=== PATIENT | female | born 1955 | race African-American/Black ===

== ENCOUNTER 2018-09-06 19:49 | Emergency (ER) | payer BC, MEDICAID, MEDICARE ==
[~2018-09-06] VITALS: Ht 160 cm; Wt 76.7 kg
[~2018-09-06 19:49] MED LIST: ALLO100T; ATENOLOL; CALC0.253; CINA60; CYCL5TAB; ESTR1TAB66; OMEG1CAP17; OMEP20CA10; RENA VITE; RENVELA; STOOL SOFTNER
[2018-09-06 20:47] VITALS: BP 115/68
[2018-09-06] MEDS ORDERED: ACETAMINOPHEN 325MG TABLET PO ONE (23:00)
== END 2018-09-07 02:17 | disposition home or self-care (01) ==
LOC: ER 19:49
DX: M79.662 Pain in left lower leg (principal)
CPT/HCPCS: 93971; 99284

== ENCOUNTER 2021-03-10 18:58 | Emergency (ER) | payer MEDICARE, MEDICAID ==
[~2021-03-10] VITALS: Ht 160 cm; Wt 58.8 kg
[~2021-03-10 18:58] MED LIST changes: -OMEP20CA10; +OMEP20CA14
[2021-03-10] MEDS ORDERED: MORPHINE SULFATE 4 MG/ML CPJ (NOT FOR IM USE) IV ONE (22:00)
[2021-03-10 22:13] LABS: BASOPHILS % 0.3 % (0.0-2.0); EOSINOPHILS % 0.1 % (0.0-5.0); HEMATOCRIT. 28.8 % (36.0-48.0); HEMOGLOBIN. 10.1 g/dL (12.0-16.0); LYMPHOCYTES % 9.4 % (20.0-50.0); MEAN CORPUSCULAR HEMOGLOBIN 33.8 pg (28.0-32.0); MEAN CORPUSCULAR VOLUME 96.9 fL (81.0-99.0); MEAN PLATELET VOLUME 7.7 fl (7.4-10.4); MONOCYTES % 6.6 % (2.0-8.0); NEUTROPHILS % 83.6 % (40.0-76.0); PLATELET 233 x1000/uL (130-400); RED BLOOD CELL COUNT 2.98 mill/uL (4.2-5.4); RED CELL DISTRIBUTION WIDTH 15.2 % (11.6-14.6)
[2021-03-10] MEDS: TRANEXAMIC ACID 1,000 MG/10 ML IV ONE ×2 (22:17→22:32)
[2021-03-10 22:21] LABS: CHLORIDE 91 mEq/L (98-107)
[2021-03-10 22:25] LABS: ETHANOL BLOOD < 10 mg/dL
[2021-03-10 22:26] LABS: PROTHROMBIN TIME 10.7 sec (9.6-11.0)
[2021-03-10] MEDS ORDERED: MORPHINE SULFATE 2 MG/ML CPJ (NOT FOR IM USE) IV SCH (22:30)
[2021-03-10] MEDS ORDERED: CLINDAMYCIN 600 MG in DEXTROSE 5% WATER 50 ML IV ONE (23:30)
[2021-03-10] MEDS ORDERED: AZTREONAM 1 G in DEXTROSE 5% WATER 50 ML IV SCH (23:30)
[2021-03-11] MEDS ORDERED: SODIUM CHLORIDE 0.9% 500 ML IV ONE
[2021-03-11] MEDS ORDERED: ACETAMINOPHEN 650MG/20.3ML UDC PO ONE (01:15)
[2021-03-11 03:30] VITALS: BP 109/41
== END 2021-03-11 03:30 | disposition left against medical advice (07) ==
LOC: ER 18:58 → CANBEDREQ 03-11 04:37
DX: A41.9 Sepsis, unspecified organism (principal); R65.20 Severe sepsis without septic shock; I12.0 Hypertensive chronic kidney disease with stage 5 chronic kidney disease or end stage renal disease; N18.6 End stage renal disease; E78.00 Pure hypercholesterolemia, unspecified; Z20.822 Contact with and (suspected) exposure to COVID-19; Z88.8 Allergy status to other drugs, medicaments and biological substances; Z87.898 Personal history of other specified conditions; Z88.0 Allergy status to penicillin; Z88.6 Allergy status to analgesic agent; Z88.9 Allergy status to unspecified drugs, medicaments and biological substances; Z88.2 Allergy status to sulfonamides; Z88.3 Allergy status to other anti-infective agents; Z88.5 Allergy status to narcotic agent; Z98.51 Tubal ligation status; Z86.39 Personal history of other endocrine, nutritional and metabolic disease; Z79.899 Other long term (current) drug therapy
CPT/HCPCS: 36415; 70486; 71045; 80053; 80320; 83605; 84145; 84484; 85025; 85610; 86140; 87040; 87426; 93005; 94640; 96365; 96368; 96375; 99291; J2270; J3490; J7060; G0480

== ENCOUNTER 2022-05-15 16:48 | Inpatient (IN) | payer MEDICARE, MEDICAID ==
[~2022-05-15] VITALS: Ht 160 cm; Wt 66.7 kg
[2022-05-15] MEDS ORDERED: KETOROLAC 30MG/ML VIAL IV STA (18:54)
[2022-05-15] MEDS ORDERED: SODIUM CHLORIDE 0.9% 1,000 ML IV ONE (19:00)
[2022-05-15 21:03] LABS: BASOPHILS % 0.4 % (0.0-2.0); EOSINOPHILS % 0.4 % (0.0-5.0); HEMOGLOBIN. 10.2 g/dL (12.0-16.0); LYMPHOCYTES % 18.5 % (20.0-50.0); MEAN CORPUSCULAR HEMOGLOBIN 32.2 pg (28.0-32.0); MEAN PLATELET VOLUME 7.3 fl (7.4-10.4); MONOCYTES % 6.7 % (2.0-8.0); PLATELET 316 x1000/uL (130-400); RED BLOOD CELL COUNT 3.16 mill/uL (4.2-5.4); RED CELL DISTRIBUTION WIDTH 15.1 % (11.6-14.6)
[2022-05-15] MEDS ORDERED: KETOROLAC 30MG/ML VIAL IV SCH (21:15)
[2022-05-15 21:31] LABS: CHLORIDE 84 mEq/L (98-107)
[2022-05-15] MEDS ORDERED: MAGNESIUM OXIDE 400MG TABLET PO SCH (22:00)
[2022-05-15] MEDS ORDERED: DOCUSATE SODIUM 100MG CAPSULE PO PRN (22:15)
[2022-05-15] MEDS ORDERED: GUAIFENESIN 200MG/10ML SUGAR FREE UDC PO PRN (22:15)
[2022-05-15] MEDS ORDERED: NITROGLYCERIN 0.4MG TABLET SL SL PRN (22:15)
[2022-05-15] MEDS ORDERED: IPRATROPIUM/ALBUTEROL 0.5-3(2.5)MG/3ML NEB NEB PRN (22:15)
[2022-05-15] MEDS ORDERED: CLONIDINE 0.1MG TABLET PO PRN (22:15)
[2022-05-16] VITALS (7 sets, daily range): BP systolic 126–152; BP diastolic 66–78
[2022-05-16] MEDS ORDERED: MAGNESIUM 2 G PREMIX 50 ML IV NR (03:30)
[2022-05-16] MEDS ORDERED: POTASSIUM CHLORIDE 20MEQ TABLET SR PO NR (03:30)
[2022-05-16] MEDS: FAMOTIDINE 20MG TABLET PO SCH (10:04)
[2022-05-16] MEDS: MAGNESIUM/ALUMINUM HYDROXIDE/SIMETHICONE 30ML UDC PO PRN ×2 (10:04→10:05)
[2022-05-16] MEDS: ASPIRIN 325MG EC TABLET PO SCH (10:04)
[2022-05-16] MEDS: ENOXAPARIN 30MG/0.3ML SYR SUBCUT SCH (10:05)
[2022-05-16 11:28] LABS: BASOPHILS % 0.6 % (0.0-2.0); EOSINOPHILS % 1.7 % (0.0-5.0); HEMATOCRIT. 28.3 % (36.0-48.0); HEMOGLOBIN. 9.6 g/dL (12.0-16.0); LYMPHOCYTES % 20.3 % (20.0-50.0); MEAN CORPUSCULAR HEMOGLOBIN 31.8 pg (28.0-32.0); MEAN CORPUSCULAR VOLUME 94.1 fL (81.0-99.0); NEUTROPHILS % 70.4 % (40.0-76.0); PLATELET 294 x1000/uL (130-400); RED BLOOD CELL COUNT 3.01 mill/uL (4.2-5.4)
[2022-05-16 11:39] LABS: CHLORIDE 84 mEq/L (98-107)
[2022-05-16 11:47] LABS: CREATINE KINASE MB FRACTION 2.6 ng/mL (0.5-3.6); PHOSPHORUS 6.9 mg/dL (2.5-4.9)
[2022-05-16] MEDS: ACETAMINOPHEN 325MG TABLET PO PRN (15:07)
[2022-05-16 17:26] LABS: CREATINE KINASE MB FRACTION 2.6 ng/mL (0.5-3.6)
[2022-05-16 18:07] LABS: T4 FREE 1.15 ng/dL (0.76-1.46)
[2022-05-16 18:40] LABS: VITAMIN B12 SERUM >2000 pg/mL pg/mL (211-911)
[2022-05-16 21:11] LABS: FOLIC ACID (FOLATE) SERUM > 20.00 ng/mL (>5.38)
[2022-05-16] MEDS: ZOLPIDEM TARTRATE 5MG TABLET PO PRN (21:50)
[2022-05-17] VITALS (11 sets, daily range): BP systolic 138–159; BP diastolic 75–91
[2022-05-17] MEDS: ACETAMINOPHEN 325MG TABLET PO PRN ×2 (04:25→20:28)
[2022-05-17] MEDS: ASPIRIN 325MG EC TABLET PO SCH (11:37)
[2022-05-17] MEDS: FAMOTIDINE 20MG TABLET PO SCH (11:37)
[2022-05-17] MEDS: ENOXAPARIN 30MG/0.3ML SYR SUBCUT SCH (11:38)
[2022-05-17] MEDS ORDERED: VISCOUS LIDOCAINE 2% 15 ML UDC MM PRN (11:45)
[2022-05-17] MEDS ORDERED: KETOROLAC 15MG/ML VIAL IV NR (12:20)
[2022-05-17 12:51] LABS: BASOPHILS % 0.4 % (0.0-2.0); EOSINOPHILS % 1.7 % (0.0-5.0); HEMATOCRIT. 26.8 % (36.0-48.0); HEMOGLOBIN. 9.2 g/dL (12.0-16.0); LYMPHOCYTES % 21.7 % (20.0-50.0); MEAN CORPUSCULAR HEMOGLOBIN 32.3 pg (28.0-32.0); MEAN CORPUSCULAR VOLUME 94.2 fL (81.0-99.0); MEAN PLATELET VOLUME 7.2 fl (7.4-10.4); NEUTROPHILS % 64.2 % (40.0-76.0); PLATELET 260 x1000/uL (130-400); RED BLOOD CELL COUNT 2.84 mill/uL (4.2-5.4); RED CELL DISTRIBUTION WIDTH 15.1 % (11.6-14.6)
[2022-05-17 14:56] LABS: CHLORIDE 86 mEq/L (98-107)
[2022-05-17 15:21] LABS: PHOSPHORUS 6.2 mg/dL (2.5-4.9)
[2022-05-17] MEDS ORDERED: MEROPENEM 500MG in NORMAL SALINE 50ML IV SCH (21:00)
[2022-05-17] MEDS: ZOLPIDEM TARTRATE 5MG TABLET PO PRN (21:25)
[2022-05-17] MEDS ORDERED: PIPERACILLIN/TAZOBACTAM 3.375 G in DEXTROSE 5% WATER 50 ML IV SCH (22:00)
[2022-05-18] VITALS (9 sets, daily range): BP systolic 107–153; BP diastolic 66–83
[2022-05-18] MEDS: ACETAMINOPHEN 325MG TABLET PO PRN ×2 (04:38→19:35)
[2022-05-18 07:22] LABS: HEMATOCRIT. 26.6 % (36.0-48.0); HEMOGLOBIN. 9.1 g/dL (12.0-16.0); MEAN CORPUSCULAR HEMOGLOBIN 32.1 pg (28.0-32.0); MEAN CORPUSCULAR VOLUME 94.3 fL (81.0-99.0); MEAN PLATELET VOLUME 7.1 fl (7.4-10.4); PLATELET 242 x1000/uL (130-400); RED BLOOD CELL COUNT 2.82 mill/uL (4.2-5.4)
[2022-05-18 07:57] LABS: PHOSPHORUS 5.8 mg/dL (2.5-4.9)
[2022-05-18] MEDS: FAMOTIDINE 20MG TABLET PO SCH (08:32)
[2022-05-18] MEDS: ASPIRIN 325MG EC TABLET PO SCH (08:32)
[2022-05-18] MEDS: ENOXAPARIN 30MG/0.3ML SYR SUBCUT SCH (08:32)
[2022-05-18] MEDS ORDERED: TRAMADOL 50MG TABLET PO ONE (13:15)
[2022-05-18 14:32] LABS: PLATELET ESTIMATE NORMAL
[2022-05-18] MEDS: SODIUM CHLORIDE 0.9% 1,000 ML IV SCH (15:26)
[2022-05-18] MEDS ORDERED: TRAMADOL 50MG TABLET PO NR (15:30)
[2022-05-18] MEDS ORDERED: VANCOMYCIN 1000MG/20ML ORAL SOLN PO SCH (18:00)
[2022-05-18] MEDS ORDERED: NALOXONE HCL 0.4MG/ML VIAL IV PRN (18:00)
[2022-05-18] MEDS: VANCOMYCIN 1000MG/20ML ORAL SOLN PO SCH (19:15)
[2022-05-18] MEDS: ONDANSETRON HCL 4MG/2ML INJ IV PRN (19:41)
[2022-05-19] VITALS (7 sets, daily range): BP systolic 122–162; BP diastolic 65–85
[2022-05-19] MEDS: ZOLPIDEM TARTRATE 5MG TABLET PO PRN (00:41)
[2022-05-19] MEDS: ONDANSETRON HCL 4MG/2ML INJ IV PRN ×2 (00:41→06:11)
[2022-05-19] MEDS: VANCOMYCIN 1000MG/20ML ORAL SOLN PO SCH ×4 (00:41→18:34)
[2022-05-19 07:17] LABS: HEMOGLOBIN. 9.1 g/dL (12.0-16.0); MEAN CORPUSCULAR HEMOGLOBIN 32.1 pg (28.0-32.0); MEAN PLATELET VOLUME 6.9 fl (7.4-10.4); PLATELET 233 x1000/uL (130-400); RED BLOOD CELL COUNT 2.84 mill/uL (4.2-5.4); RED CELL DISTRIBUTION WIDTH 15.2 % (11.6-14.6)
[2022-05-19 07:29] LABS: PHOSPHORUS 6.4 mg/dL (2.5-4.9)
[2022-05-19] MEDS: ASPIRIN 325MG EC TABLET PO SCH (09:00)
[2022-05-19] MEDS: FAMOTIDINE 20MG TABLET PO SCH (09:00)
[2022-05-19] MEDS: SODIUM CHLORIDE 0.9% 1,000 ML IV SCH (09:15)
[2022-05-19] MEDS ORDERED: VANC250C12 MT (10:27)
[2022-05-19] MEDS: ENOXAPARIN 30MG/0.3ML SYR SUBCUT SCH (11:07)
[2022-05-19] MEDS ORDERED: SEVELAMER CARBONATE 800 MG TABLET PO SCH (12:40)
[2022-05-19] MEDS: SEVELAMER CARBONATE 800 MG TABLET PO SCH ×2 (12:40→18:33)
[2022-05-19 12:44] LABS: PLATELET ESTIMATE NORMAL
[2022-05-19] MEDS ORDERED: EZ-HD SUSPENSION(BARIUM SULFATE 340GM) PO ONE (13:03)
[2022-05-19] MEDS ORDERED: BARIUM SULFATE(VOLUMEN) 450 ML ORAL.SUSP ONE (13:03)
[2022-05-19] MEDS ORDERED: BARIUM SULFATE 176 GM SUSP.RECON ONE (13:04)
[2022-05-19] MEDS ORDERED: SIMETHICONE/SOD BICARB/CIT AC 1 EACH GRAN.EF.PK ONE (13:05)
[2022-05-19] MEDS ORDERED: SODIUM CHLORIDE 0.9% 1,000 ML IV ONE (14:00)
== END 2022-05-19 19:30 | disposition home health service (06) | DRG 371 ==
LOC: ER 16:48 → 8WST 21:59 → SUPCPDRO 22:03 → EDBEDREQ 22:03 → EDBEDREQTM 22:03 → EDBEDREQ 22:04 → ENRESERV 05-16 06:30 → 8WST 05-16 09:48
PROVIDERS: ADMIT Internal Medicine; ATTEND Internal Medicine
PROC: 3E1M39Z Irrigation of Peritoneal Cavity using Dialysate, Percutaneous Approach (ICD-10-PCS; principal; 2022-05-16)
PROC: 3E1M39Z Irrigation of Peritoneal Cavity using Dialysate, Percutaneous Approach (ICD-10-PCS; 2022-05-16)
PROC: 3E1M39Z Irrigation of Peritoneal Cavity using Dialysate, Percutaneous Approach (ICD-10-PCS; 2022-05-16)
DX: A04.72 Enterocolitis due to Clostridium difficile, not specified as recurrent (principal); N18.6 End stage renal disease; I12.0 Hypertensive chronic kidney disease with stage 5 chronic kidney disease or end stage renal disease; E87.1 Hypo-osmolality and hyponatremia; E44.0 Moderate protein-calorie malnutrition; N25.81 Secondary hyperparathyroidism of renal origin; R55 Syncope and collapse; D63.8 Anemia in other chronic diseases classified elsewhere; E87.6 Hypokalemia; E78.5 Hyperlipidemia, unspecified; E03.9 Hypothyroidism, unspecified; E78.00 Pure hypercholesterolemia, unspecified; E83.42 Hypomagnesemia; R13.10 Dysphagia, unspecified; E88.09 Other disorders of plasma-protein metabolism, not elsewhere classified; D25.9 Leiomyoma of uterus, unspecified; Z20.822 Contact with and (suspected) exposure to COVID-19; Z88.8 Allergy status to other drugs, medicaments and biological substances; Z68.26 Body mass index [BMI] 26.0-26.9, adult; Z28.310 Unvaccinated for COVID-19; Z99.2 Dependence on renal dialysis; Z88.1 Allergy status to other antibiotic agents; Z91.048 Other nonmedicinal substance allergy status; Z98.51 Tubal ligation status; Z79.01 Long term (current) use of anticoagulants; Z83.3 Family history of diabetes mellitus; Z82.49 Family history of ischemic heart disease and other diseases of the circulatory system
CPT/HCPCS: 36415; 71045; 72070; 74176; 74220; 80048; 80053; 80061; 80305; 82533; 82550; 82553; 82607; 82746; 83036; 83540; 83550; 83735; 83930; 84100; 84439; 84443; 84484; 85025; 87015; 87045; 87426; 87427; 87449; 87493; 87804; 89055; 90945; 93005; 93306; 93970; 97116; 97162; 99285; C1893; J1650; J1885; J2185; J2405; J3370; J3475; J7030; J7517

== ENCOUNTER 2022-05-24 12:17 | Inpatient (IN) | payer MEDICARE, MEDICAID ==
[~2022-05-24] VITALS: Ht 160 cm; Wt 63.3 kg
[~2022-05-24 12:17] MED LIST changes: -ALLO100T; -CYCL5TAB; -ESTR1TAB66; -OMEG1CAP17; -STOOL SOFTNER; +VANC250C12 MT
[2022-05-24 15:56] LABS: BASOPHILS % 0.6 % (0.0-2.0); HEMATOCRIT. 31.2 % (36.0-48.0); HEMOGLOBIN. 10.3 g/dL (12.0-16.0); LYMPHOCYTES % 17.9 % (20.0-50.0); MEAN CORPUSCULAR HEMOGLOBIN 31.1 pg (28.0-32.0); MEAN CORPUSCULAR VOLUME 94.6 fL (81.0-99.0); MEAN PLATELET VOLUME 6.5 fl (7.4-10.4); MONOCYTES % 7.8 % (2.0-8.0); NEUTROPHILS % 72.7 % (40.0-76.0); PLATELET 236 x1000/uL (130-400); RED CELL DISTRIBUTION WIDTH 14.8 % (11.6-14.6)
[2022-05-24 16:02] LABS: PROTHROMBIN TIME 10.6 sec (9.6-11.0)
[2022-05-24 16:20] LABS: CHLORIDE 84 mEq/L (98-107)
[2022-05-24] MEDS ORDERED: ONDANSETRON HCL 4MG/2ML INJ IV PRN (16:45)
[2022-05-24] MEDS ORDERED: MAGNESIUM/ALUMINUM HYDROXIDE/SIMETHICONE 30ML UDC PO PRN (16:45)
[2022-05-24] MEDS ORDERED: SODIUM CHLORIDE 0.9% 1,000 ML IV SCH (16:45)
[2022-05-24] MEDS ORDERED: GUAIFENESIN 200MG/10ML SUGAR FREE UDC PO PRN (16:45)
[2022-05-24] MEDS ORDERED: NALOXONE HCL 0.4MG/ML VIAL IV PRN (17:00)
[2022-05-24] MEDS ORDERED: ENOXAPARIN 30MG/0.3ML SYR SUBCUT SCH (17:00)
[2022-05-24] MEDS: MULTIVITAMINS,THER W-MINERALS TABLET PO SCH (18:11)
[2022-05-24] MEDS: FLUCONAZOLE 100MG TABLET PO SCH (18:13)
[2022-05-24] MEDS: VANCOMYCIN 1000MG/20ML ORAL SOLN PO SCH ×2 (18:14→23:56)
[2022-05-24] MEDS: TRAMADOL 50MG TABLET PO PRN (18:31)
[2022-05-24] MEDS ORDERED: POTASSIUM CHLORIDE 20MEQ TABLET SR PO NR (23:00)
[2022-05-24] MEDS: SODIUM CHLORIDE 0.9% 1,000 ML IV SCH (23:56)
[2022-05-25 00:28] LABS: PHOSPHORUS 5.3 mg/dL (2.5-4.9)
[2022-05-25] MEDS ORDERED: MAGNESIUM OXIDE 400MG TABLET PO NR (00:45)
[2022-05-25 00:56] LABS: VITAMIN B12 SERUM 1894 pg/mL (211-911)
[2022-05-25] MEDS: TRAMADOL 50MG TABLET PO PRN (02:31)
[2022-05-25 05:57] LABS: BASOPHILS % 0.4 % (0.0-2.0); EOSINOPHILS % 2.2 % (0.0-5.0); HEMATOCRIT. 22.7 % (36.0-48.0); HEMOGLOBIN. 7.6 g/dL (12.0-16.0); LYMPHOCYTES % 29.1 % (20.0-50.0); MEAN CORPUSCULAR HEMOGLOBIN 31.7 pg (28.0-32.0); MEAN CORPUSCULAR VOLUME 94.7 fL (81.0-99.0); MEAN PLATELET VOLUME 6.7 fl (7.4-10.4); MONOCYTES % 11.1 % (2.0-8.0); NEUTROPHILS % 57.2 % (40.0-76.0); PLATELET 150 x1000/uL (130-400); RED BLOOD CELL COUNT 2.39 mill/uL (4.2-5.4); RED CELL DISTRIBUTION WIDTH 14.6 % (11.6-14.6)
[2022-05-25 06:05] LABS: CHLORIDE 92 mEq/L (98-107)
[2022-05-25 06:07] LABS: PROTHROMBIN TIME 11.1 sec (9.6-11.0)
[2022-05-25 06:16] LABS: HDL CHOLESTEROL 46 mg/dL (40-59); LDL CHOLESTEROL 128 mg/dL (5-100); PHOSPHORUS 5.7 mg/dL (2.5-4.9)
[2022-05-25] MEDS: VANCOMYCIN 1000MG/20ML ORAL SOLN PO SCH ×3 (06:17→18:21)
[2022-05-25] MEDS: FLUCONAZOLE 100MG TABLET PO SCH (09:25)
[2022-05-25] MEDS: MULTIVITAMINS,THER W-MINERALS TABLET PO SCH (09:25)
[2022-05-25 10:30] VITALS: BP 116/77
[2022-05-25 11:30] VITALS: BP 116/77
[2022-05-25] MEDS ORDERED: MAGNESIUM 2 G PREMIX 50 ML IV NR (11:30)
[2022-05-25 12:23] LABS: FOLIC ACID (FOLATE) SERUM >20 ng/mL ng/mL (>5.38)
[2022-05-25] MEDS: SODIUM CHLORIDE 0.9% 1,000 ML IV SCH (14:50)
[2022-05-25 16:00] VITALS: BP 145/77
[2022-05-25 18:00] VITALS: BP_SYST 151; BP_SYST 152; BP_DIAS 74
[2022-05-25 20:00] VITALS: BP 158/86
[2022-05-25] MEDS: PANTOPRAZOLE SODIUM 40 MG/VIAL IV SCH (21:39)
[2022-05-25 22:30] VITALS: BP 158/86
[2022-05-26] VITALS (8 sets, daily range): BP systolic 123–167; BP diastolic 65–76
[2022-05-26] MEDS: VANCOMYCIN 1000MG/20ML ORAL SOLN PO SCH ×5 (00:20→23:37)
[2022-05-26 03:42] LABS: BASOPHILS % 0.3 % (0.0-2.0); EOSINOPHILS % 0.9 % (0.0-5.0); HEMATOCRIT. 23.8 % (36.0-48.0); LYMPHOCYTES % 17.9 % (20.0-50.0); MEAN CORPUSCULAR HEMOGLOBIN 31.9 pg (28.0-32.0); MEAN CORPUSCULAR VOLUME 94.5 fL (81.0-99.0); MEAN PLATELET VOLUME 6.7 fl (7.4-10.4); MONOCYTES % 9.2 % (2.0-8.0); NEUTROPHILS % 71.7 % (40.0-76.0); PLATELET 135 x1000/uL (130-400); RED BLOOD CELL COUNT 2.52 mill/uL (4.2-5.4); RED CELL DISTRIBUTION WIDTH 14.4 % (11.6-14.6)
[2022-05-26 03:47] LABS: PROTHROMBIN TIME 10.3 sec (9.6-11.0)
[2022-05-26 03:51] LABS: PHOSPHORUS 6.2 mg/dL (2.5-4.9)
[2022-05-26] MEDS: CLONIDINE 0.1MG TABLET PO SCH ×3 (06:40→21:31)
[2022-05-26] MEDS: FLUCONAZOLE 100MG TABLET PO SCH (09:00)
[2022-05-26] MEDS: MULTIVITAMINS,THER W-MINERALS TABLET PO SCH (09:00)
[2022-05-26] MEDS: PANTOPRAZOLE SODIUM 40 MG/VIAL IV SCH ×2 (09:12→21:37)
[2022-05-26] MEDS: TRAMADOL 50MG TABLET PO PRN ×2 (09:13→17:39)
[2022-05-26] MEDS ORDERED: ETOMIDATE 2MG/ML 10ML VIAL IV ONE (13:48)
[2022-05-26] MEDS ORDERED: LIDOCAINE HCL 1% 10 MG/ML 10ML VIAL ONE (13:49)
[2022-05-26] MEDS ORDERED: MIDAZOLAM HCL 2 MG/2 ML VIAL ONE ×2 (13:49→14:05)
[2022-05-26] MEDS ORDERED: CLONIDINE 0.1MG TABLET PO SCH (14:00)
[2022-05-27] VITALS (15 sets, daily range): BP systolic 114–159; BP diastolic 46–79
[2022-05-27] MEDS: TRAMADOL 50MG TABLET PO PRN (04:59)
[2022-05-27] MEDS: CLONIDINE 0.1MG TABLET PO SCH ×3 (05:33→21:13)
[2022-05-27] MEDS: VANCOMYCIN 1000MG/20ML ORAL SOLN PO SCH ×3 (05:33→17:25)
[2022-05-27 07:45] LABS: BASOPHILS % 0.5 % (0.0-2.0); EOSINOPHILS % 3.2 % (0.0-5.0); HEMATOCRIT. 21.5 % (36.0-48.0); HEMOGLOBIN. 7.3 g/dL (12.0-16.0); LYMPHOCYTES % 27.3 % (20.0-50.0); MEAN CORPUSCULAR HEMOGLOBIN 32.2 pg (28.0-32.0); MEAN CORPUSCULAR VOLUME 94.7 fL (81.0-99.0); MEAN PLATELET VOLUME 6.9 fl (7.4-10.4); MONOCYTES % 12.9 % (2.0-8.0); NEUTROPHILS % 56.1 % (40.0-76.0); PLATELET 136 x1000/uL (130-400); RED BLOOD CELL COUNT 2.27 mill/uL (4.2-5.4); RED CELL DISTRIBUTION WIDTH 14.3 % (11.6-14.6)
[2022-05-27] MEDS: PANTOPRAZOLE SODIUM 40 MG/VIAL IV SCH ×2 (08:50→21:13)
[2022-05-27] MEDS: FLUCONAZOLE 100MG TABLET PO SCH (08:51)
[2022-05-27] MEDS: MULTIVITAMINS,THER W-MINERALS TABLET PO SCH (08:51)
[2022-05-27] MEDS ORDERED: EPOETIN ALFA-EPBX 4,000 UNIT/ML VIAL SUBCUT NR (21:00)
[2022-05-28] VITALS (9 sets, daily range): BP systolic 114–146; BP diastolic 60–78
[2022-05-28] MEDS: VANCOMYCIN 1000MG/20ML ORAL SOLN PO SCH ×4 (00:25→17:57)
[2022-05-28] MEDS: TRAMADOL 50MG TABLET PO PRN (00:37)
[2022-05-28] MEDS: CLONIDINE 0.1MG TABLET PO SCH ×3 (06:00→22:00)
[2022-05-28 06:55] LABS: BASOPHILS % 0.5 % (0.0-2.0); EOSINOPHILS % 2.2 % (0.0-5.0); HEMATOCRIT. 24.1 % (36.0-48.0); HEMOGLOBIN. 8.4 g/dL (12.0-16.0); LYMPHOCYTES % 26.6 % (20.0-50.0); MEAN CORPUSCULAR HEMOGLOBIN 31.7 pg (28.0-32.0); MEAN CORPUSCULAR VOLUME 91.4 fL (81.0-99.0); MEAN PLATELET VOLUME 6.8 fl (7.4-10.4); MONOCYTES % 10.7 % (2.0-8.0); PLATELET 119 x1000/uL (130-400); RED BLOOD CELL COUNT 2.64 mill/uL (4.2-5.4)
[2022-05-28 07:15] LABS: PHOSPHORUS 5.5 mg/dL (2.5-4.9)
[2022-05-28] MEDS: MULTIVITAMINS,THER W-MINERALS TABLET PO SCH (08:44)
[2022-05-28] MEDS: FLUCONAZOLE 100MG TABLET PO SCH (08:44)
[2022-05-28] MEDS: PANTOPRAZOLE SODIUM 40 MG/VIAL IV SCH ×2 (08:44→20:34)
[2022-05-29] VITALS (7 sets, daily range): BP systolic 76–152; BP diastolic 69–80
[2022-05-29] MEDS: TRAMADOL 50MG TABLET PO PRN (01:22)
[2022-05-29] MEDS: VANCOMYCIN 1000MG/20ML ORAL SOLN PO SCH ×2 (01:22→05:33)
[2022-05-29] MEDS: CLONIDINE 0.1MG TABLET PO SCH ×2 (05:33→05:36)
[2022-05-29] MEDS ORDERED: DIPHENHYDRAMINE 50MG CAPSULE PO PRN (05:45)
[2022-05-29 06:57] LABS: BASOPHILS % 0.4 % (0.0-2.0); EOSINOPHILS % 1.7 % (0.0-5.0); HEMOGLOBIN. 9.2 g/dL (12.0-16.0); LYMPHOCYTES % 24.9 % (20.0-50.0); MEAN CORPUSCULAR HEMOGLOBIN 31.6 pg (28.0-32.0); MEAN CORPUSCULAR VOLUME 92.4 fL (81.0-99.0); MEAN PLATELET VOLUME 6.9 fl (7.4-10.4); MONOCYTES % 9.2 % (2.0-8.0); NEUTROPHILS % 63.8 % (40.0-76.0); PLATELET 128 x1000/uL (130-400); RED BLOOD CELL COUNT 2.92 mill/uL (4.2-5.4); RED CELL DISTRIBUTION WIDTH 14.9 % (11.6-14.6)
[2022-05-29 08:05] LABS: PHOSPHORUS 5.5 mg/dL (2.5-4.9)
[2022-05-29] MEDS: PANTOPRAZOLE SODIUM 40 MG/VIAL IV SCH (09:46)
[2022-05-29] MEDS: MULTIVITAMINS,THER W-MINERALS TABLET PO SCH (09:46)
[2022-05-29] MEDS ORDERED: HYDROCORTISONE 1% RECTAL CREAM 30GM PR PRN (10:30)
[2022-05-29] MEDS ORDERED: HYDROCORTISONE 1% CREAM 30GM PR PRN (10:30)
[2022-05-29] MEDS ORDERED: POTASSIUM CHLORIDE 20MEQ TABLET SR PO NR (11:30)
== END 2022-05-29 17:15 | disposition home or self-care (01) | DRG 371 ==
LOC: ER 12:30 → MICUSO 15:44 → EDBEDREQSVC 05-25 09:53 → 7EST 05-25 10:39
PROVIDERS: ADMIT Hospitalist; ATTEND Hospitalist
PROC: 5A1D70Z Performance of Urinary Filtration, Intermittent, Less than 6 Hours Per Day (ICD-10-PCS; 2022-05-25)
PROC: 0DB78ZX Excision of Stomach, Pylorus, Via Natural or Artificial Opening Endoscopic, Diagnostic (ICD-10-PCS; principal; 2022-05-26)
PROC: 5A1D70Z Performance of Urinary Filtration, Intermittent, Less than 6 Hours Per Day (ICD-10-PCS; 2022-05-26)
PROC: 30233N1 Transfusion of Nonautologous Red Blood Cells into Peripheral Vein, Percutaneous Approach (ICD-10-PCS; 2022-05-27)
PROC: 5A1D70Z Performance of Urinary Filtration, Intermittent, Less than 6 Hours Per Day (ICD-10-PCS; 2022-05-27)
PROC: 5A1D70Z Performance of Urinary Filtration, Intermittent, Less than 6 Hours Per Day (ICD-10-PCS; 2022-05-28)
DX: A04.71 Enterocolitis due to Clostridium difficile, recurrent (principal); N18.6 End stage renal disease; S22.42XA Multiple fractures of ribs, left side, initial encounter for closed fracture; E87.1 Hypo-osmolality and hyponatremia; N25.81 Secondary hyperparathyroidism of renal origin; E46 Unspecified protein-calorie malnutrition; K92.1 Melena; I12.0 Hypertensive chronic kidney disease with stage 5 chronic kidney disease or end stage renal disease; K29.70 Gastritis, unspecified, without bleeding; E87.6 Hypokalemia; D63.1 Anemia in chronic kidney disease; E78.00 Pure hypercholesterolemia, unspecified; E87.8 Other disorders of electrolyte and fluid balance, not elsewhere classified; D25.9 Leiomyoma of uterus, unspecified; E03.9 Hypothyroidism, unspecified; R13.10 Dysphagia, unspecified; R73.9 Hyperglycemia, unspecified; E78.5 Hyperlipidemia, unspecified; E88.09 Other disorders of plasma-protein metabolism, not elsewhere classified; K44.9 Diaphragmatic hernia without obstruction or gangrene; R21 Rash and other nonspecific skin eruption; Z86.16 Personal history of COVID-19; Z88.1 Allergy status to other antibiotic agents; Z98.51 Tubal ligation status; Z99.2 Dependence on renal dialysis; Z79.82 Long term (current) use of aspirin; Z88.0 Allergy status to penicillin; Z88.2 Allergy status to sulfonamides; Z88.8 Allergy status to other drugs, medicaments and biological substances; Z79.899 Other long term (current) drug therapy; Z68.24 Body mass index [BMI] 24.0-24.9, adult; Z80.3 Family history of malignant neoplasm of breast; Z82.49 Family history of ischemic heart disease and other diseases of the circulatory system; Z91.048 Other nonmedicinal substance allergy status; W18.30XA Fall on same level, unspecified, initial encounter; Y93.89 Activity, other specified; Y92.89 Other specified places as the place of occurrence of the external cause; Y99.8 Other external cause status
CPT/HCPCS: 36415; 71101; 74021; 74176; 80048; 80053; 80061; 80202; 82270; 82330; 82533; 82607; 82652; 82728; 82746; 83036; 83540; 83550; 83605; 83735; 83930; 84100; 84145; 84443; 85014; 85018; 85025; 85044; 86850; 86900; 86920; 87015; 87045; 87426; 87427; 87449; 87493; 88305; 89055; 90945; 93005; 99285; C9113; J0885; J1650; J2250; J2405; J3370; J3475; J3490; P9016; Q0163

== ENCOUNTER → 2022-06-21 | Outpatient (CLI) | payer MEDICARE, MEDICAID ==
[2022-06-21 15:46] LABS: EOSINOPHILS % 0.8 % (0.0-5.0); HEMATOCRIT. 35.7 % (36.0-48.0); HEMOGLOBIN. 12.2 g/dL (12.0-16.0); LYMPHOCYTES % 22.2 % (20.0-50.0); MEAN CORPUSCULAR HEMOGLOBIN 31.9 pg (28.0-32.0); MEAN CORPUSCULAR VOLUME 93.2 fL (81.0-99.0); MONOCYTES % 5.3 % (2.0-8.0); NEUTROPHILS % 70.7 % (40.0-76.0); PLATELET 366 x1000/uL (130-400); RED BLOOD CELL COUNT 3.82 mill/uL (4.2-5.4); RED CELL DISTRIBUTION WIDTH 15.7 % (11.6-14.6)
[2022-06-21 16:09] LABS: CHLORIDE 89 mEq/L (98-107)
[2022-06-21 16:17] LABS: TOTAL IRON BINDING CAPACITY 143 ug/dL (250-450)
[2022-06-21 18:59] LABS: FERRITIN 813 ng/mL (10-291)
[2022-06-21 19:02] LABS: VITAMIN B12 SERUM 1435 pg/mL (211-911)
[2022-06-21 19:03] LABS: FOLIC ACID (FOLATE) SERUM > 20.00 ng/mL (>5.38)
== END | disposition home or self-care (01) ==
LOC: LAB 15:06
PROVIDERS: ATTEND Internal Medicine Gastroenterology
DX: R13.10 Dysphagia, unspecified (principal); R19.4 Change in bowel habit; R19.7 Diarrhea, unspecified; Z86.2 Personal history of diseases of the blood and blood-forming organs and certain disorders involving the immune mechanism
CPT/HCPCS: 36415; 80053; 82607; 82728; 82746; 83540; 83550; 85025; 85044

== ENCOUNTER 2024-09-07 12:16 | Emergency (ER) | payer MEDICARE, OTHER ==
[~2024-09-07] VITALS: Ht 157.5 cm; Wt 68.0 kg
[~2024-09-07 12:16] MED LIST changes: +AMLO10TA4 MT; +CARV6.2548 MT; +FAMO20TA8 MT; +GABA-529 PO; +SEVE0.8P3 PO; +TOPUD MT; +TRAM50TA3 PO; +VANC125C5 PO
[2024-09-07 12:17] VITALS: O2SAT 98
[2024-09-07] MEDS: SODIUM CHLORIDE 0.9% 1,000 ML IV ONE (13:57)
[2024-09-07 14:12] LABS: BASOPHILS % 0.4 % (0.0-2.0); DIFFERENTIAL COMMENT 0; EOSINOPHILS % 3.3 % (0.0-5.0); HEMOGLOBIN. 10.4 g/dL (12.0-16.0); LYMPHOCYTES % 30.4 % (20.0-50.0); MEAN CORPUSCULAR HEMOGLOBIN 33.4 pg (28.0-32.0); MEAN CORPUSCULAR HGB CONC 32.5 g/dL (31.0-37.0); MEAN CORPUSCULAR VOLUME 102.8 fL (81.0-99.0); MEAN PLATELET VOLUME 7.1 fl (7.4-10.4); MONOCYTES % 8.8 % (2.0-8.0); NEUTROPHILS % 57.1 % (40.0-76.0); PLATELET 186 x1000/uL (130-400); RED BLOOD CELL COUNT 3.11 mill/uL (4.2-5.4); RED CELL DISTRIBUTION WIDTH 14.1 % (11.6-14.6)
[2024-09-07 14:22] LABS: PROTHROMBIN TIME 10.5 sec (9.6-11.0)
[2024-09-07 14:24] LABS: CHLORIDE 97 mEq/L (98-107); POTASSIUM 4.7 mEq/L (3.5-5.1)
[2024-09-07 14:25] LABS: CARBON DIOXIDE 30 mEq/L (21-32); SODIUM 138 mEq/L (136-145)
[2024-09-07 14:26] LABS: CALCIUM 9.4 mg/dL (8.7-10.4)
[2024-09-07 14:30] LABS: GLUCOSE 87 mg/dL (70-105)
[2024-09-07 14:31] LABS: ETHANOL BLOOD < 10 mg/dL (<10); UREA NITROGEN BLOOD 42 mg/dL (9-23)
[2024-09-07 14:32] LABS: TROPONIN I HIGH SENSITIVITY 4 ng/L (3.0-34)
[2024-09-07 15:03] LABS: CREATININE 7.7 mg/dL (0.6-1.0)
[2024-09-07 16:06] VITALS: BP 158/83; PULSE 71; RESP 16; TEMP 36.4; O2SAT 98
== END 2024-09-07 16:20 | disposition home or self-care (01) ==
LOC: ER 12:16 → EDBEDREQ 15:02 → ER 16:20
DX: R55 Syncope and collapse (principal); I12.0 Hypertensive chronic kidney disease with stage 5 chronic kidney disease or end stage renal disease; N18.6 End stage renal disease; I25.2 Old myocardial infarction; Z79.899 Other long term (current) drug therapy; Z86.74 Personal history of sudden cardiac arrest; Z88.0 Allergy status to penicillin; Z88.1 Allergy status to other antibiotic agents; Z88.2 Allergy status to sulfonamides; Z88.5 Allergy status to narcotic agent; Z88.8 Allergy status to other drugs, medicaments and biological substances; Z98.51 Tubal ligation status; Z99.2 Dependence on renal dialysis
CPT/HCPCS: 80048; 80320; 85025; 85610; 84484; 36415; 71045; 93005; 99285; J7030; A4606; G0480